=== PATIENT | female | born 1990 | race Two or more races ===

== ENCOUNTER 2020-02-03 11:00 | Emergency (ER) | payer OTHER ==
[~2020-02-03] VITALS: Ht 157.5 cm; Wt 72.0 kg
[2020-02-03 11:10] VITALS: BP 140/71
[2020-02-03] MEDS ORDERED: METH4TAB2 PO (11:26)
--- NOTE | 2020-02-03 11:26 | PHYS DOC ---
Past Medical History Past Medical History: No Pertinent History Past Surgical History: No Surgical History Smoking Status: Never Smoker Alcohol Use: None Adult General Chief Complaint Chief Complaint: SORE THROAT HPI HPI Patient is an otherwise healthy 29-year-old female who presents with a 2 to three-week history of a sore throat. She denies any fever. She's been seen by her primary care physician told her to take ibuprofen and gave her a nasal spray with steroid spray is causing dryness in her nose. She denies any difficulty swallowing or any difficulty breathing. She states it scratchy in nature.[] Review of Systems Review of Systems Constitutional: Denies fever or chills [] Eyes: Denies change in visual acuity, redness, or eye pain [] HENT: Per history of present illness[] Respiratory: Denies cough or shortness of breath [] Cardiovascular: No additional information not addressed in HPI [] GI: Denies abdominal pain, nausea, vomiting, bloody stools or diarrhea [] : Denies dysuria or hematuria [] Musculoskeletal: Denies back pain or joint pain [] Integument: Denies rash or skin lesions [] Neurologic: Denies headache, focal weakness or sensory changes [] Endocrine: Denies polyuria or polydipsia [] All other systems were reviewed and found to be within normal limits, except as documented in this note. Current Medications Current Medications Current Medications Medications (Trade) Dose Ordered Sig/Gerri Start Time Stop Time Status Last Admin Dose Admin Methylprednisolone Acetate (DEPO-Medrol 80MG VIAL) 80 mg 1X ONCE 02/03/20 11:30 02/03/20 11:31 Allergies Allergies Allergies Coded Allergies Type Severity Reaction Last Updated Verified No Known Drug Allergies 02/03/20 No Physical Exam Physical Exam Constitutional: Well developed, well nourished, no acute distress, non-toxic appearance. [] HENT: Her oropharynx is moist her posterior pharynx appears completely normal to me[] Eyes: PERRLA, EOMI, conjunctiva normal, no discharge. [] Neck: Normal range of motion, no tenderness, supple, no stridor. [] Cardiovascular:Heart rate regular rhythm, no murmur [] Lungs & Thorax: Bilateral breath sounds clear to auscultation [] Abdomen: Bowel sounds normal, soft, no tenderness, no masses, no pulsatile masses. [] Skin: Warm, dry, no erythema, no rash. [] Back: No tenderness, no CVA tenderness. [] Extremities: No tenderness, no cyanosis, no clubbing, ROM intact, no edema. [] Neurologic: Alert and oriented X 3, normal motor function, normal sensory function, no focal deficits noted. [] Psychologic: Anxious[] Current Patient Data Vital Signs Vital Signs Date Time Temp Pulse Resp B/P (MAP) Pulse Ox O2 Delivery O2 Flow Rate FiO2 02/03/20 11:10 97.7 112 18 140/71 (94) 99 Room Air 97.7 EKG EKG [] Radiology/Procedures Radiology/Procedures [] Course & Med Decision Making Course & Med Decision Making Pertinent Labs and Imaging studies reviewed. (See chart for details) [] Dragon Disclaimer Dragon Disclaimer This electronic medical record was generated, in whole or in part, using a voice recognition dictation system. Departure Departure Impression: Primary Impression: Viral pharyngitis Disposition: 01 HOME, SELF-CARE Condition: STABLE Referrals: NO PCP (PCP) Scripts Methylprednisolone (MEDROL) 4 Mg Tab.ds.pk 1 PKG PO UD for arthritis, #1 PKG Prov: EMILY CAGLE DO 02/03/20 EMILY CAGLE DO Feb 03, 2020 11:26
[2020-02-03] MEDS ORDERED: methylPREDNISolone ACETATE 80 MG/ML VIAL. IM ONE (11:30)
== END 2020-02-03 11:30 | disposition home or self-care (01) ==
LOC: ER 11:00
DX: J02.8 Acute pharyngitis due to other specified organisms (principal); B97.89 Other viral agents as the cause of diseases classified elsewhere
CPT/HCPCS: 99283

== ENCOUNTER 2020-02-06 19:54 | Emergency (ER) | payer OTHER ==
[~2020-02-06] VITALS: Ht 165.1 cm; Wt 75.0 kg
[~2020-02-06 19:54] MED LIST: METH4TAB2 PO
[2020-02-06 20:15] VITALS: BP 137/83
--- NOTE | 2020-02-06 21:16 | PHYS DOC ---
Past Medical History Past Medical History: No Pertinent History Past Surgical History: No Surgical History Smoking Status: Never Smoker Alcohol Use: None Adult General Chief Complaint Chief Complaint: SORE THROAT [facility] HPI Patient is a 29 year old female who presents to the emergency department with complaints of a continued sore throat, nasal congestion, and frequent throat clearing. She states she has been taking the Medrol Dosepak that was prescribed to her with little relief of her symptoms. She is also tried taking Zyrtec without much help. Patient states that the symptoms started about a month ago and it seemed to get worse. She also reports having itchy watery eyes and nasal congestion. She denies any fever, cough, chest pain, shortness of breath, wheezing, nausea, vomiting, or diarrhea. The patient currently rates her pain a 3 out of 10 on the pain scale she denies any alleviating factors. Review of Systems Review of Systems Complete ROS is negative unless otherwise noted in HPI. Allergies Allergies Allergies Coded Allergies Type Severity Reaction Last Updated Verified No Known Drug Allergies 02/03/20 No Physical Exam Physical Exam See Above Constitutional: Well developed, well nourished, no acute distress HENT: Normocephalic, atraumatic, bilateral external ears normal, bilateral TMs normal, [place] APPEARANCE OF posterior pharynx, oropharynx moist, nose congested with erythema and edema of the nasal turbinates bilaterally Eyes: PERRLA, conjunctiva injected bilaterally, no discharge. [] Neck: Normal range of motion, supple,non-tender, no stridor. [] Cardiovascular:Heart rate regular rhythm, no murmur [] Lungs & Thorax: Bilateral breath sounds clear to auscultation, Respirations even and unlabored, no retractions, no respiratory distress Skin: Warm, dry, no erythema, no rash. [] Extremities: No cyanosis, ROM intact Neurologic: Alert and oriented X 3, no focal deficits noted. [] Psychologic: Affect normal, judgement normal, mood normal. Current Patient Data Vital Signs Vital Signs Date Time Temp Pulse Resp B/P (MAP) Pulse Ox O2 Delivery O2 Flow Rate FiO2 02/06/20 20:15 98.4 78 14 137/83 (101) 97 Room Air 98.4 EKG EKG [] Radiology/Procedures Radiology/Procedures [] Course & Med Decision Making Course & Med Decision Making Pertinent Labs and Imaging studies reviewed. (See chart for details) [] Dragon Disclaimer Dragon Disclaimer This electronic medical record was generated, in whole or in part, using a voice recognition dictation system. Departure Departure Impression: Primary Impression: Allergic rhinitis Disposition: 01 HOME, SELF-CARE Condition: STABLE Referrals: NO PCP (PCP) Patient Instructions: Allergic Rhinitis Additional Instructions: Recommend that you take 10 mg of generic Zyrtec (cetirizine) or Claritin at bedtime and use over the counter Flonase (fluticasone) nasal spray 2 sprays each nostril once daily in the morning. You may take Tylenol or ibuprofen as needed for pain/fever. Increase clear fluids. Avoid triggers such as smoke, fragrance, dust, and pollen. You may take OTC cough suppressants as needed. Follow-up with your primary care doctor if symptoms persist, return to the ER if symptoms worsen. Problem Qualifiers Primary Impression: Allergic rhinitis Allergic rhinitis trigger: unspecified Allergic rhinitis seasonality: non- seasonal Qualified Codes: J30.89 - Other allergic rhinitis KAMERON SMITH APRN Feb 06, 2020 21:16
== END 2020-02-06 21:27 | disposition home or self-care (01) ==
LOC: ER 19:54
DX: J30.89 Other allergic rhinitis (principal)
CPT/HCPCS: 99281

== ENCOUNTER → 2020-05-05 | Outpatient (CLI) | payer OTHER ==
--- NOTE | 2020-05-05 08:22 | RAD ---
ABDOMEN COMPLETE History: Right upper quadrant abdominal pain Comparison: None. Findings: Multiple sonographic images of the abdomen are submitted. There is coarsening of the echotexture of the liver. Right lobe of the liver measured 15.5 cm longitudinal. No focal abnormality is identified of the visualized pancreas. Abdominal aortic caliber is within normal limits up to 2 cm. There is segmental visualization of the inferior vena cava. Right kidney measured 11.2 x 4.4 x 3.7 cm, no hydronephrosis. Left kidney measured 12 x 4.5 x 6 cm, no hydronephrosis. Gallbladder is present without intraluminal abnormality, wall thickening, or pericholecystic fluid. Impression: 1. There is hepatic steatosis. No other significant abnormality is demonstrated. Electronically signed by: Oscar Boston MD (05/05/2020 8:19 AM) [id number]
== END | disposition home or self-care (01) ==
LOC: US 07:10
PROVIDERS: ATTEND Family Medicine
DX: K76.0 Fatty (change of) liver, not elsewhere classified (principal)
CPT/HCPCS: 76700

== ENCOUNTER → 2020-05-27 | Outpatient (CLI) | payer OTHER ==
[~2020-05-27] MED LIST changes: +SINCALIDE 1.45 MCG in IV NORMAL SALINE 50ML 30 ML IV ONE
--- NOTE | 2020-05-27 13:19 | RAD ---
EXAM: HEPATOBILIARY SCINTIGRAPHY WITH GALLBLADDER EJECTION FRACTION CALCULATION. HISTORY: Bloating. TECHNIQUE: 5.5 mCi technetium-99m Choletec were administered intravenously and scintigraphic images of the abdomen obtained. After filling of the gallbladder, 1.5 mcg of sincalide were infused and the gallbladder ejection fraction calculated. FINDINGS: There is prompt hepatic clearance of tracer from the blood pool. There is homogeneous distribution throughout the liver. There is normal filling of the gallbladder and clearance into the biliary tree and small bowel. The gallbladder ejection fraction is 81% (normal >35%). IMPRESSION: 1. Normal gallbladder ejection fraction. Electronically signed by: Garcia Noriega MD (05/27/2020 1:17 PM) [id number]
== END | disposition home or self-care (01) ==
LOC: NM 11:18
PROVIDERS: ATTEND Internal Medicine Gastroenterology
DX: Z11.59 Encounter for screening for other viral diseases (principal); R14.0 Abdominal distension (gaseous)
CPT/HCPCS: 78227; A9537; J2805; U0003

== ENCOUNTER → 2020-06-02 | Day surgery (SDC) | payer OTHER ==
[~2020-06-02] MED LIST changes: +HYDROmorphone 2 MG/ML VIAL IV PRN; +IV RINGERS,LACTATED 1000ML 1,000 ML IV SCH; +LIDOCAINE 1% PF 2 ML VIAL. ID PRN; +LIDOCAINE 2% PF 5 ML VIAL. ONE; +MORPHINE SULFATE 2 MG/ML VIAL. IV PRN; +OMEP20CA16 PO; +ONDANSETRON PF 4 MG/2 ML VIAL. IV PRN; +PANT40TA77 PO; +PROCHLORPERAZINE 10 MG/2 ML VIAL. IV PRN; +PROPOFOL 10 MG/ML (20ML) VIAL. IV ONE; -SINCALIDE 1.45 MCG in IV NORMAL SALINE 50ML 30 ML IV ONE; +fentaNYL PF VIAL 100 MCG/2 ML VIAL IV PRN
[2020-06-02 09:43] VITALS: BP 117/77
--- NOTE | 2020-06-03 18:06 | PATHOLOGY ---
[facility] Accession Number: [id number] . 01 Material submitted: . PART A: small bowel - SMALL BOWEL BIOPSY PART B: stomach - ANTRUM AND BODY BIOPSY. Modifiers: body PART C: esophagus - DISTAL ESOPHAGUS BIOPSY. Modifiers: distal . 01 Clinical history: . dyspepsia . 02 Diagnosis: A. Small bowel biopsies: - No significant pathologic abnormalities. . B. Gastric biopsies, gastric antrum and body: - Chronic gastritis, mild. . C. Esophageal biopsies, distal esophagus: - Reflux esophagitis. (JPM:[facility] 06/03/2020) [facility] 06/03/2020 0944 [facility] . 02 Comment: Sections of the small bowel biopsy reveal segments of duodenal and small intestine mucosa. Where best oriented, the mucosal villi show no sprue-like changes or significant inflammatory changes. . Sections of the gastric biopsy reveal segments of gastric antral and gastric body mucosa showing congestion and mild chronic inflammation. A properly controlled immunoperoxidase stain for Helicobacter is negative for Helicobacter organisms. . Sections of the distal esophageal biopsy reveal segments of esophagogastric and gastric mucosa showing mild chronic inflammation. The squamous esophageal mucosa is hyperplastic. The findings are consistent with reflux esophagitis. There is no evidence of Henderson's change, dysplasia, or malignancy. (JPM:[facility] 06/03/2020) . Special stain performed: Immunoperoxidase for Helicobacter on B1. . 02 Electronically signed: . James Hays MD, Pathologist NPI- [id number] . 01 Gross description: . A. The specimen is received in formalin, labeled "Rosmery Sy, small bowel BX" and consists of multiple fragments of klein tissue measuring 1.1 x 0.6 x 0.2 cm in aggregate which are entirely submitted in A1. . B. The specimen is received in formalin, labeled "Mohseni, Rosmery, antrum and body BX" and consists of multiple fragments of klein tissue measuring 1.0 x 0.7 x 0.2 cm in aggregate which are entirely submitted in B1. . C. The specimen is received in formalin, labeled "Mohseni, Rosmery, distal esophagus BX" and consists of 2 fragments of pink-klein tissue measuring 0.3 x 0.3 cm each which are entirely submitted in C1. (SDY; 06/02/2020) SYU/SYU 06/02/2020 1830 Local . 02 Pathologist provided ICD-10: K29.50, K21.0 . 02 CPT . 630473, 795882, 873145, [id number] Specimen Comment: A courtesy copy of this report has been sent to [phone], [phone] Specimen Comment: [id number] Specimen Comment: Report sent to / DR KAY Performed at: 01 [facility] [address], [place], [place] [id number] MD Wolfgang Croft MD Phone: [phone] Performed at: 02 [facility] [address] [place], [place] [id number] MD James Hays MD Phone: [phone]
== END ==
LOC: SURG 08:15
PROVIDERS: ATTEND Internal Medicine Gastroenterology
DX: R14.0 Abdominal distension (gaseous) (principal); K29.50 Unspecified chronic gastritis without bleeding; K21.0 Gastro-esophageal reflux disease with esophagitis; Z98.890 Other specified postprocedural states
CPT/HCPCS: 43239; 81025; J2704